=== PATIENT | female | born 1995 | race Two or more races ===

== ENCOUNTER 2025-03-12 17:59 | Emergency (ER) | payer OTHER ==
[~2025-03-12] VITALS: Ht 154.9 cm; Wt 47.3 kg
[2025-03-12 18:10] VITALS: BP 120/67; PULSE 100; RESP 20; O2SAT 98
[2025-03-12 18:58] VITALS: TEMP 98.1
[2025-03-12] MEDS: ACETAMINOPHEN 325 MG TAB PO ONE (18:58)
[2025-03-12] MEDS ORDERED: ACET500T58 PO (19:03)
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
--- NOTE | 2025-03-12 19:23 | DVH ---
XY CHEST TWO VIEWS ROUTINE CLINICAL HISTORY: right posterior rib pain COMPARISON: None TECHNIQUE: Frontal and lateral view of the chest was obtained FINDINGS: Lines and Tubes: None Lungs: No focal consolidation. Pleura: No effusion. No pneumothorax. Cardiomediastinal contours: Unremarkable Bones: No acute osseous abnormality. IMPRESSION: 1. No acute cardiopulmonary disease.
--- NOTE | 2025-03-12 19:27 | DVH ---
EXAM: CT HEAD WITHOUT CONTRAST INDICATION: HEAD INJURY TECHNIQUE: CT of the head without intravenous contrast. Radiation Dose : 1. Head: CT Dose: CTDI volume is 50.58 mGy. Dose-length product is 2.47 mGy*cm The dose indicators for CT are the volume Computed Tomography (CT) Dose Index (CTDIvol) and the Dose Length Product (DLP), and are measured in units of mGy and mGy-cm, respectively. These indicators are not patient dose, but values generated from the CT scanner acquisition factors. The report includes radiation exposure data for exposures received during this examination. COMPARISON: None FINDINGS: Evaluation is degraded by streak artifact. The cerebral parenchyma appears to be normal configuration and attenuation. The ventricles, cisterns , and sulci appear age-appropriate. There is no evidence for acute territorial infarct, hemorrhage, or mass effect. The orbits are normal. The visualized paranasal sinuses and mastoid air cells are clear. The soft t issues and osseous structures appear within normal limits. IMPRESSION: 1. Evaluation is degraded by streak artifact. Within this limitation, no acute traumatic intracrania l abnormality identified. 2. If clinical symptoms persist, MRI may be beneficial in further evaluation. Radiation optimization: All CT scans at this facility use at least one of these dose optimization tamir hniques: automated exposure control mA and/or kV adjustment per patient size (includes targeted exam s where dose is matched to clinical indication) or iterative reconstruction.
--- NOTE | 2025-03-12 19:30 | DVH ---
CLINICAL HISTORY: NECK PAIN TECHNIQUE: CT exam of the cervical spine was performed without intravenous contrast. This exam was pe rformed according to our departmental dose optimization program. Up-to-date CT equipment and radiatio n dose reduction techniques are utilized as appropriate. CTDI 10.57 DLP 1065.12 COMPARISON: None FINDINGS: No acute displaced fracture. The craniocervical junction appears intact. There is no CT evidence of high-grade spinal canal or neural foraminal narrowing. The paraspinal soft tissues are unremarkable. IMPRESSION: 1. No acute displaced fracture.
== END 2025-03-12 19:47 | disposition home or self-care (01) ==
LOC: EDBD 17:59 → ER 17:59
DX: O99.891 Other specified diseases and conditions complicating pregnancy (principal); S16.1XXA Strain of muscle, fascia and tendon at neck level, initial encounter; R51.9 Headache, unspecified; Z3A.01 Less than 8 weeks gestation of pregnancy; V89.2XXA Person injured in unspecified motor-vehicle accident, traffic, initial encounter; Y93.I9 Activity, other involving external motion; Y92.488 Other paved roadways as the place of occurrence of the external cause; Y99.8 Other external cause status
CPT/HCPCS: 70450; 71046; 72125